=== PATIENT | female | born 1985 | race Caucasian/White ===

== ENCOUNTER → 2018-02-09 | Emergency (ER) | payer OTHER ==
[~2018-02-09] MED LIST: ACCUNEB SO1.25 MG/1 INH; AMBIEN 5 MG TABL5 M1 PO; BACTRIM DS TAB1 EACH PO; COLACE100 MG PO; LEVSIN0.125 MG PO; LEXAPRO 10 MG T10 M2 PO; NORCO 5-325 TA1 EACH PO; ZOFRAN4 MG PO
== END ==
LOC: M.ERS 21:40
DX: R10.9 Unspecified abdominal pain (principal); Z53.21 Procedure and treatment not carried out due to patient leaving prior to being seen by health care provider

== ENCOUNTER 2018-03-04 17:55 | Emergency (ER) | payer OTHER ==
[~2018-03-04] VITALS: Ht 165.1 cm; Wt 90.7 kg
[2018-03-04] MEDS ORDERED: LEXAPRO 10 MG T10 M2 PO (18:06)
[2018-03-04] MEDS ORDERED: BACTRIM DS TAB1 EACH PO (18:06)
[2018-03-04] MEDS ORDERED: ACCUNEB SO1.25 MG/1 INH (18:06)
[2018-03-04] MEDS ORDERED: AMBIEN 5 MG TABL5 M1 PO (18:06)
[2018-03-04] MEDS ORDERED: LEVSIN0.125 MG PO (18:07)
[2018-03-04] MEDS ORDERED: COLACE100 MG PO (18:07)
[2018-03-04] MEDS ORDERED: NORCO 5-325 TA1 EACH PO (18:08)
[2018-03-04 18:41] LABS: HEMOGLOBIN 12.6 gm/dL (12.0-15.0); MPV 7.9 fl. (7.2-11.1); WBC 14.7 thou/uL (4.0-11.0)
[2018-03-04 18:43] LABS: HEMATOCRIT 38.1 % (37.0-47.0); MCH 30.4 pg (26.0-34.0); MCHC 33.2 g/dL (28.0-37.0); MCV 91.8 fL (80.0-100.0); NUCLEATED RBCS 0 /100WBC; PLATELET COUNT* 285 thou/uL (150-400); RBC 4.15 mil/uL (4.20-5.00); RDW-CV 13.3 % (10.5-14.5)
[2018-03-04 18:48] LABS: CALCIUM 8.6 mg/dL (8.5-10.1); CREATININE 0.9 mg/dL (0.6-1.3); POTASSIUM 3.6 mmol/L (3.5-5.1)
[2018-03-04 18:53] LABS: ALBUMIN 3.4 g/dL (3.4-5.0); TOTAL BILIRUBIN 0.2 mg/dL (<0.1-1.0); TOTAL PROTEIN 6.8 g/dL (6.4-8.2)
[2018-03-04 19:17] LABS: ABSOLUTE LYMPHOCYTES 2.1 thou/uL (0.8-5.3); ABSOLUTE MONOCYTES 0.4 thou/uL (0.0-1.2); ABSOLUTE NEUTROPHILS 12.2 thou/uL (1.6-8.1)
[2018-03-04 19:18] LABS: ATYPICAL LYMPHS 11 %; PLATELET ESTIMATE ADEQUATE
[2018-03-04 20:26] LABS: URINE BILIRUBIN NEGATIVE (Negative); URINE BLOOD 3+ (Negative); URINE CLARITY SL CLOUDY; URINE COLOR DARK YELLOW; URINE GLUCOSE-RANDOM NEGATIVE (Negative); URINE KETONES NEGATIVE (Negative); URINE LEUKOCYTES-REFLEX NEGATIVE (Negative); URINE PROTEIN 1+ (Negative); URINE SPECIFIC GRAVITY 1.015 (1.005-1.030); URINE UROBILINOGEN 0.2 E.U./dl (0.2-1.0)
[2018-03-04 20:28] LABS: URINE NITRITE-REFLEX POSITIVE (Negative)
[2018-03-04 20:39] LABS: BACTERIA-REFLEX 1-9 Few /HPF (None Seen); CASTS None Seen /LPF (None Seen); CRYSTALS None Seen /LPF (None Seen); MUCUS 0-3 Light strn/LPF (None Seen); SQUAMOUS 0-3 Few /LPF (0-3); URINE RBC >20 Many /HPF (0-2); URINE WBC-REFLEX 0-5 Rare /HPF (0-5)
[2018-03-04] MEDS ORDERED: ZOFRAN4 MG PO (20:57)
[2018-03-04 21:35] VITALS: BP 133/77
== END 2018-03-04 21:45 | disposition home or self-care (01) ==
LOC: M.ERS 17:55
PROVIDERS: Nurse Practitioner Family
DX: G89.18 Other acute postprocedural pain (principal); N39.0 Urinary tract infection, site not specified; F41.9 Anxiety disorder, unspecified; Z88.1 Allergy status to other antibiotic agents; Z88.5 Allergy status to narcotic agent